=== PATIENT | female | born 1955 | race Caucasian/White ===

== ENCOUNTER 2017-05-22 14:47 | Emergency (ER) | payer BC ==
--- NOTE | 2017-05-22 15:45 | CT ---
CT BRAIN WITHOUT CONTRAST: Date: 05/22/17 COMPARISON: None. FINDINGS: No acute territorial infarct or hemorrhage. No midline shift. There are faint subcortical hypodensit ies of the right frontal white matter. Ventricular size and extra-axial CSF spaces are normal. Calvarium is intact. Paranasal sinuses and m astoids are clear. IMPRESSION: No acute intracranial abnormality. POS: [facility]
[2017-05-22] MEDS ORDERED: diphenhydrAMINE HCl 50 MG/ML 1 ML VIAL ONE (17:15)
[2017-05-22] MEDS ORDERED: Ketorolac Tromethamine 30 MG/ML VIAL ONE (17:15)
[2017-05-22] MEDS ORDERED: Metoclopramide HCl 10 MG/2 ML VIAL ONE ×2 (17:15→18:13)
[2017-05-22] MEDS ORDERED: Metoclopramide HCl 10 MG/2 ML VIAL IVP SCH (17:45)
[2017-05-22] MEDS ORDERED: Lidocaine 1% (PF) 30 ML VIAL ONE (19:57)
[2017-05-22 22:44] LABS: CSF, Glucose 48 mg/dl (40-70)
== END 2017-05-22 22:07 | disposition home or self-care (01) ==
LOC: ERS 14:47
DX: R51 Headache (principal); E78.5 Hyperlipidemia, unspecified; I10 Essential (primary) hypertension
CPT/HCPCS: 62270; 70450; 82945; 84157; 87070; 87205; 89051; 96361; 96365; 96375; J1200; J1885; J2001; J2765

== ENCOUNTER 2018-02-28 08:06 | Outpatient (CLI) | payer BC | END 2018-02-28 08:07 | disposition home or self-care (01) | LOC: BICMAMMO 08:06 | PROVIDERS: ATTEND Family Medicine | DX: Z12.31 Encounter for screening mammogram for malignant neoplasm of breast (principal); Z80.3 Family history of malignant neoplasm of breast | CPT/HCPCS: 77063; 77067 ==

== ENCOUNTER 2019-03-04 08:19 | Outpatient (CLI) | payer BC ==
--- NOTE | 2019-03-04 09:25 | MMO ---
Bilateral MAMMO Bilat Screen [facility]. CLINICAL HISTORY: Patient is 63 years old and is seen for screening. The patient has the following family history of breast cancer: maternal grandmother. The patient has no personal history of cancer. VIEWS: The views performed were: bilateral craniocaudal with tomosynthesis and bilateral mediolateral oblique with tomosynthesis. FILMS COMPARED: The present examination has been compared to prior imaging studies performed at [facility] on 01/25/2016, 02/06/2017, 02/26/2017 and 02/28/2018. MAMMOGRAM FINDINGS: The breasts are heterogeneously dense, which could obscure a lesion on mammography. There are no suspicious masses, suspicious calcifications, or new areas of architectural distortion. IMPRESSION: THERE IS NO MAMMOGRAPHIC EVIDENCE OF MALIGNANCY. A ROUTINE FOLLOW-UP MAMMOGRAM IN 1 YEAR IS RECOMMENDED. THE RESULTS OF THIS EXAM WERE SENT TO THE PATIENT. ACR BI-RADS Category 1 - Negative MAMMOGRAPHY NOTE: 1. A negative mammogram report should not delay a biopsy if a dominant of clinically suspicious mass is present. 2. Approximately 10% to 15% of breast cancers are not detected by mammography. 3. Adenosis and dense breasts may obscure an underlying neoplasm. Reported by: BRETT MCKINLEY MD Electonically Signed: [id number]
== END 2019-03-04 08:20 | disposition home or self-care (01) ==
LOC: BICMAMMO 08:19
PROVIDERS: ATTEND Family Medicine
DX: Z12.31 Encounter for screening mammogram for malignant neoplasm of breast (principal); Z80.3 Family history of malignant neoplasm of breast
CPT/HCPCS: 77063; 77067

== ENCOUNTER 2020-03-09 07:53 | Outpatient (CLI) | payer BC ==
--- NOTE | 2020-03-09 08:28 | MMO ---
Bilateral MAMMO Bilat Screen [facility]. CLINICAL HISTORY: Patient is 64 years old and is seen for screening. The patient has the following family history of breast cancer: maternal grandmother, at age 70. The patient has no personal history of cancer. VIEWS: The views performed were: bilateral craniocaudal with tomosynthesis and bilateral mediolateral oblique with tomosynthesis. FILMS COMPARED: The present examination has been compared to prior imaging studies performed at [facility] on 02/06/2017, 02/26/2017, 02/28/2018 and 03/04/2019. This study has been interpreted with the assistance of computer-aided detection. MAMMOGRAM FINDINGS: The breasts are heterogeneously dense, which could obscure a lesion on mammography. There are no suspicious masses, suspicious calcifications, or new areas of architectural distortion. IMPRESSION: THERE IS NO MAMMOGRAPHIC EVIDENCE OF MALIGNANCY. A ROUTINE FOLLOW-UP MAMMOGRAM IN 1 YEAR IS RECOMMENDED. THE RESULTS OF THIS EXAM WERE SENT TO THE PATIENT. ACR BI-RADS Category 1 - Negative MAMMOGRAPHY NOTE: 1. A negative mammogram report should not delay a biopsy if a dominant of clinically suspicious mass is present. 2. Approximately 10% to 15% of breast cancers are not detected by mammography. 3. Adenosis and dense breasts may obscure an underlying neoplasm. Reported by: SNOW VALLES MD Electonically Signed: [id number]
== END 2020-03-09 07:54 | disposition home or self-care (01) ==
LOC: BICMAMMO 07:53
PROVIDERS: ATTEND Family Medicine
DX: Z12.31 Encounter for screening mammogram for malignant neoplasm of breast (principal); Z80.3 Family history of malignant neoplasm of breast
CPT/HCPCS: 77063; 77067

== ENCOUNTER 2020-09-09 09:38 | Outpatient (CLI) | payer BC | END 2020-09-09 09:39 | disposition home or self-care (01) | LOC: EKG 09:38 | PROVIDERS: ATTEND Family Medicine | DX: Z01.810 Encounter for preprocedural cardiovascular examination (principal); R07.9 Chest pain, unspecified | CPT/HCPCS: 93005; 93010 ==

== ENCOUNTER 2021-03-15 08:06 | Outpatient (CLI) | payer BC | END 2021-03-15 08:07 | disposition home or self-care (01) | LOC: BICMAMMO 08:06 | PROVIDERS: ATTEND Family Medicine | DX: Z12.31 Encounter for screening mammogram for malignant neoplasm of breast (principal); Z80.3 Family history of malignant neoplasm of breast | CPT/HCPCS: 77063; 77067 ==

== ENCOUNTER 2022-03-21 07:58 | Outpatient (CLI) | payer OTHER | END 2022-03-21 07:59 | disposition home or self-care (01) | LOC: BICMAMMO 07:58 | PROVIDERS: ATTEND Family Medicine | DX: Z12.31 Encounter for screening mammogram for malignant neoplasm of breast (principal); Z80.3 Family history of malignant neoplasm of breast | CPT/HCPCS: 77063; 77067 ==

== ENCOUNTER 2022-11-08 08:41 | Outpatient (CLI) | payer OTHER | END 2022-11-08 08:42 | disposition home or self-care (01) | LOC: BICRAD 08:41 | PROVIDERS: ATTEND Family Medicine | DX: D16.7 Benign neoplasm of ribs, sternum and clavicle (principal) | CPT/HCPCS: 36415; 71046; 71120; 80053; 80061; 84443; 85025 ==

== ENCOUNTER 2023-04-17 14:14 | Outpatient (CLI) | payer OTHER | END 2023-04-17 14:15 | disposition home or self-care (01) | LOC: BICMAMMO 14:14 | PROVIDERS: ATTEND Family Medicine | DX: Z12.31 Encounter for screening mammogram for malignant neoplasm of breast (principal) | CPT/HCPCS: 77063; 77067 ==